=== PATIENT | male | born 1945 | race Caucasian/White ===

== ENCOUNTER → 2021-10-20 | Day surgery (SDC) | payer MEDICARE, OTHER ==
[~2021-10-20] MED LIST: FENTANYL CITRATE/PF 100MCG/2 ML INJ ONE; LANSOPRAZOLE30 MG PO; LEVOTHYROXINE50 MCG PO; MIDAZOLAM HCL 2 MG/2 ML VIAL ONE; SODIUM CHLORIDE 0.9% 50ML 50 ML ONE
[2021-10-20 08:00] VITALS: BP 133/75
== END | disposition home or self-care (01) ==
LOC: OR 06:48
PROVIDERS: ATTEND Specialist
DX: G56.01 Carpal tunnel syndrome, right upper limb (principal); M54.12 Radiculopathy, cervical region; I25.810 Atherosclerosis of coronary artery bypass graft(s) without angina pectoris; K21.9 Gastro-esophageal reflux disease without esophagitis; Z95.1 Presence of aortocoronary bypass graft; Z85.810 Personal history of malignant neoplasm of tongue
CPT/HCPCS: 29848; 71046; J0690; U0002; J2250; J3010